=== PATIENT | male | born 1995 | race Two or more races ===

== ENCOUNTER 2018-12-28 22:05 | Emergency (ER) | payer MEDICAID, OTHER ==
[~2018-12-28] VITALS: Ht 172.7 cm; Wt 68.2 kg
--- NOTE | 2018-12-28 22:19 | NUR ---
PT INTERMITTENTLY ANSWERING QUESTIONS IN NAMIBIAN AND THEN CLAIMING TO NOT SPEAK NAMIBIAN
[2018-12-28 22:58] LABS: URINE AMPHETAMINE SCREEN NEGATIVE (Neg); URINE BARBITUATE SCREEN NEGATIVE (Neg); URINE BENZODIAZEPINES SCREEN NEGATIVE (Neg); URINE CANNABINOID SCREEN POSITIVE (Neg); URINE COCAINE SCREEN NEGATIVE (Neg); URINE METHADONE SCREEN NEGATIVE (Neg); URINE OPIATE SCREEN NEGATIVE (Neg); URINE PHENCYCLIDINE SCREEN NEGATIVE (Neg)
[2018-12-28] MEDS ORDERED: LORazepam 0.5 MG tablet PO ONE (23:20)
--- NOTE | 2018-12-28 23:40 | NUR ---
pt is sitting up in bed, staring forward, breathing witout difficulty and cooperative with cares
--- NOTE | 2018-12-29 01:01 | NUR ---
dr schmidt at bedside with us
--- NOTE | 2018-12-29 01:02 | NUR ---
us negative for pericarditis per dr schmidt
[2018-12-29 01:56] VITALS: BP 122/62
== END 2018-12-29 01:57 | disposition home or self-care (01) ==
LOC: ER 22:06
DX: T50.991A Poisoning by other drugs, medicaments and biological substances, accidental (unintentional), initial encounter (principal); F12.90 Cannabis use, unspecified, uncomplicated; R00.0 Tachycardia, unspecified; Y92.89 Other specified places as the place of occurrence of the external cause
CPT/HCPCS: 80305; 93005; 99284